=== PATIENT | female | born 1995 | race Hispanic/Latino ===

== ENCOUNTER 2018-12-05 08:13 | Emergency (ER) | payer OTHER ==
[2018-12-05 08:23] VITALS: RESP 18; TEMP 98.5; O2SAT 99
[2018-12-05] MEDS ORDERED: Sodium Chloride 0.9% 1,000 ML IV STA (08:46)
[2018-12-05] MEDS ORDERED: Iohexol 240 (50 ml) PO STA (08:46)
[2018-12-05 09:05] LABS: BASO # 0.1 K/uL (0.0-0.2); BASO % 0.9 % (0.0-2.0); EOS # 0.1 K/uL (0.0-0.7); HEMOGLOBIN 13.4 g/dL (11.0-16.0); LYMPH # 1.3 K/uL (1.0-4.3); LYMPH % 15.7 % (20.0-40.0); MEAN CELL VOLUME 90.6 fL (81.0-99.0); MEAN CORPUSCULAR HEMOGLOBIN 31.4 pg (27.0-31.0); MEAN CORPUSCULAR HGB CONC 34.6 g/dL (33.0-37.0); MEAN PLATELET VOLUME 8.5 fL (7.2-11.7); MONO # 0.9 K/uL (0.0-0.8); MONO % 11.1 % (0.0-10.0); NEUT # 5.7 K/uL (1.8-7.0); NEUT % 71.3 % (50.0-75.0); RBC 4.27 Mil/uL (3.80-5.20)
[2018-12-05 09:18] LABS: ALB/GLOB RATIO 1.9 (1.0-2.1); ALBUMIN 4.4 g/dL (3.5-5.0); ALT/SGPT 8 U/L (9-52); AST/SGOT 22 U/L (14-36); BLOOD UREA NITROGEN 12 mg/dL (7-17); CALCIUM 8.9 mg/dl (8.6-10.4); GFR NON-AFRICAN AMERICAN > 60; LIPASE 42 U/L (23-300)
[2018-12-05] MEDS ORDERED: Iohexol 240 (50 ml) ONE (09:18)
[2018-12-05] MEDS ORDERED: Morphine 4 MG/ML VIAL ONE (09:19)
[2018-12-05] MEDS ORDERED: Sodium Chloride 0.9% 1,000 ML ONE (09:19)
[2018-12-05 09:24] LABS: SQUAMOUS EPITHIAL 4 /hpf (0-5); URINE BACTERIA RARE (<OCC); URINE BILIRUBIN NEGATIVE (NEGATIVE); URINE BLOOD NEGATIVE (NEGATIVE); URINE CLARITY Clear (Clear); URINE COLOR Yellow (YELLOW); URINE GLUCOSE (UA) NORMAL (Normal); URINE LEUKOCYTE ESTERASE NEG Leu/uL (Negative); URINE PROTEIN NEGATIVE (NEGATIVE); URINE UROBILINOGEN NORMAL mg/dL (0.2-1.0)
[2018-12-05 09:28] LABS: HCG,QUALITATIVE URINE NEGATIVE (NEGATIVE)
[2018-12-05] MEDS ORDERED: Iohexol 300 100 ML IJ ONE (10:34)
--- NOTE | 2018-12-05 11:30 | CT ---
Date of service: 12/05/2018 PROCEDURE: CT Abdomen and Pelvis with contrast HISTORY: LLQ abd pain radiating to epigastric area COMPARISON: None. TECHNIQUE: Following oral and intravenous contrast administration, a CT examination of the abdomen and pelvis was performed from the domes of the diaphragms to the symphysis pubis with reformatted datasets provided not only axial but also sagittal and coronal series. Contrast dose: Omnipaque 300, 100 cc Radiation dose: Total exam DLP = 246.69 mGy-cm. This CT exam was performed using one or more of the following dose reduction techniques: Automated exposure control, adjustment of the mA and/or kV according to patient size, and/or use of iterative reconstruction technique. FINDINGS: LOWER THORAX: Unremarkable. LIVER: Unremarkable. No gross lesion or ductal dilatation. GALLBLADDER AND BILE DUCTS: Unremarkable. PANCREAS: Unremarkable. No gross lesion or ductal dilatation. SPLEEN: Unremarkable. ADRENALS: Unremarkable. No mass. KIDNEYS AND URETERS: Unremarkable. No hydronephrosis. No solid mass. VASCULATURE: Unremarkable. No aortic aneurysm. No aortic atherosclerotic calcification or mural plaque present. BOWEL: No bowel obstruction is appreciated and there is no pericolic or perienteric reaction or gross mural thickening evident. Borderline left colonic mural thickening is question but not definite and may indicate an limited amount of segmental colitis. Clinically correlate further. No colonic diverticular disease appreciable. No focal mural thickening appreciable. APPENDIX: Normal appendix. PERITONEUM: Unremarkable. Trace pelvic fluid identified. No free air. LYMPH NODES: Unremarkable. No enlarged lymph nodes. BLADDER: Unremarkable. REPRODUCTIVE: Unremarkable. BONES: No acute fracture. OTHER FINDINGS: None. IMPRESSION: Borderline left colonic segmental colitis though this is not definite. Trace pelvic fluid is identified. No abscess or free air. The remainder the examination appears unremarkable.
--- NOTE | 2018-12-05 11:49 | C.PDOC ---
History Of Present Illness 23 year old female presents to the ED complaining of abdominal pain associated with nausea since waking up this morning. Reports she developed several abdominal pain in her lower abdomen that goes up to her epigastric area. Denies any fever, chills, vomiting, diarrhea, dysuria, hematuria, chest pain, back pain, or any other complaints. Chief Complaint (Nursing): Abdominal Pain History Per: Patient History/Exam Limitations: no limitations Onset/Duration Of Symptoms: Hrs Current Symptoms Are (Timing): Still Present Location Of Pain/Discomfort: Epigastric, Suprapubic Radiation Of Pain To:: None Quality Of Discomfort: "Pain" Associated Symptoms: Nausea. denies: Fever, Chills, Vomiting, Diarrhea, Back Pain, Chest Pain, Urinary Symptoms Past Medical History Reviewed: Historical Data, Nursing Documentation, Vital Signs Vital Signs: Last Vital Signs Temp 98.5 F 12/05/18 08:23 Pulse 94 H 12/05/18 08:23 Resp 18 12/05/18 08:23 BP 121/86 12/05/18 08:23 Pulse Ox 99 12/05/18 08:23 - Medical History PMH: No Chronic Diseases Surgical History: No Surg Hx Family History: States: No Known Family Hx - Social History Hx Alcohol Use: Yes Hx Substance Use: Yes - Immunization History Hx Tetanus Toxoid Vaccination: Yes Hx Influenza Vaccination: No Hx Pneumococcal Vaccination: No Review Of Systems Except As Marked, All Systems Reviewed And Found Negative. Constitutional: Negative for: Fever, Chills Cardiovascular: Negative for: Chest Pain Gastrointestinal: Positive for: Nausea, Abdominal Pain. Negative for: Vomiting, Diarrhea Genitourinary: Negative for: Dysuria, Hematuria Musculoskeletal: Negative for: Back Pain Physical Exam - Physical Exam Appears: Non-toxic, No Acute Distress Skin: Warm, Dry, No Rash Head: Normacephalic Eye(s): bilateral: Normal Inspection Nose: Normal Oral Mucosa: Moist Neck: Supple Chest: Symmetrical Cardiovascular: Rhythm Regular Respiratory: Normal Breath Sounds, No Rales, No Rhonchi, No Wheezing Gastrointestinal/Abdominal: Soft, Tenderness (left abdomen and epigastric area ), No Distention, No Guarding, No Rebound Back: No CVA Tenderness Extremity: Bilateral: Atraumatic, Normal Color And Temperature, Normal ROM Neurological/Psych: Oriented x3, Normal Speech Gait: Steady ED Course And Treatment - Laboratory Results Result Diagrams: 12/05/18 09:00 12/05/18 09:00 Lab Results: Total Bilirubin 0.4 mg/dL (0.2-1.3) 12/05/18 09:00 AST 22 U/L (14-36) 12/05/18 09:00 ALT 8 U/L (9-52) L 12/05/18 09:00 Alkaline Phosphatase 81 U/L (38-126) 12/05/18 09:00 Total Protein 6.7 g/dL (6.3-8.3) 12/05/18 09:00 Albumin 4.4 g/dL (3.5-5.0) 12/05/18 09:00 Globulin 2.3 gm/dL (2.2-3.9) 12/05/18 09:00 Albumin/Globulin Ratio 1.9 (1.0-2.1) 12/05/18 09:00 Lipase 42 U/L (23-300) 12/05/18 09:00 Urine Color Yellow (YELLOW) 12/05/18 09:00 Urine Clarity Clear (Clear) 12/05/18 09:00 Urine pH 5.0 (5.0-8.0) 12/05/18 09:00 Ur Specific [place] 1.028 (1.003-1.030) 12/05/18 09:00 Urine Protein Negative mg/dL (NEGATIVE) 12/05/18 09:00 Urine Glucose (UA) Normal mg/dL (Normal) 12/05/18 09:00 Urine Ketones Negative mg/dL (NEGATIVE) 12/05/18 09:00 Urine Blood Negative (NEGATIVE) 12/05/18 09:00 Urine Nitrate Negative (NEGATIVE) 12/05/18 09:00 Urine Bilirubin Negative (NEGATIVE) 12/05/18 09:00 Urine Urobilinogen Normal mg/dL (0.2-1.0) 12/05/18 09:00 Ur Leukocyte Esterase Neg Geremias/uL (Negative) 12/05/18 09:00 Urine WBC (Auto) 1 /hpf (0-5) 12/05/18 09:00 Urine RBC (Auto) 2 /hpf (0-3) 12/05/18 09:00 Ur Squamous Epith Cells 4 /hpf (0-5) 12/05/18 09:00 Urine Bacteria Rare (<OCC) 12/05/18 09:00 Urine HCG, Qual Negative (NEGATIVE) 12/05/18 09:00 Urine HCG, Qual Negative (NEGATIVE) 12/05/18 09:00 O2 Sat by Pulse Oximetry: 99 (RA) Pulse Ox Interpretation: Normal - CT Scan/US ABD/PEL Other Rad Studies (CT/US): Read By Radiologist, Radiology Report Reviewed CT/US Interpretation: Accession No. : [id number]. Patient Name / ID : NICOLETTE PARADA / [id number]. Exam Date : 12/05/2018 10:54:21 ( Approved ). Study Comment : Sex / Age : F / 23Y. Creator : Sada Diggs. Dictator : Kodi Kessler MD. Unit Control Worker : Range Mechanic : Kodi Kessler MD. Approver2 : Report Date : 12/05/2018 11:04:31. My Comment : . Date of service: 12/05/2018. PROCEDURE: CT Abdomen and Pelvis with contrast. HISTORY: LLQ abd pain radiating to epigastric area. COMPARISON: None. TECHNIQUE: Following oral and intravenous contrast administration, a CT examination of the abdomen and pelvis was performed from the domes of the diaphragms to the symphysis pubis with reformatted datasets provided not only axial but also sagittal and coronal series. Contrast dose: Omnipaque 300, 100 cc. Radiation dose: Total exam DLP = 246.69 mGy-cm. This CT exam was performed using one or more of the following dose reduction techniques: Automated exposure control, adjustment of the mA and/or kV according to patient size, and/or use of iterative reconstruction technique. FINDINGS: LOWER THORAX: Unremarkable. LIVER: Unremarkable. No gross lesion or ductal dilatation. GALLBLADDER AND BILE DUCTS: Unremarkable. PANCREAS: Unremarkable. No gross lesion or ductal dilatation. SPLEEN: Unremarkable. ADRENALS: Unremarkable. No mass. KIDNEYS AND URETERS: Unremarkable. No hydronephrosis. No solid mass. VASCULATURE: Unremarkable. No aortic aneurysm. No aortic atherosclerotic calcification or mural plaque present. BOWEL: No bowel obstruction is appreciated and there is no pericolic or perienteric reaction or gross mural thickening evident. Borderline left colonic mural thickening is question but not definite and may indicate an limited amount of segmental colitis. Clinically correlate further. No colonic diverticular disease appreciable. No focal mural thickening appreciable. APPENDIX: Normal appendix. PERITONEUM: Unremarkable. Trace pelvic fluid identified. No free air. LYMPH NODES: Unremarkable. No enlarged lymph nodes. BLADDER: Unremarkable. REPRODUCTIVE: Unremarkable. BONES: No acute fracture. OTHER FINDINGS: None. IMPRESSION: Borderline left colonic segmental colitis though this is not definite. Trace pelvic fluid is identified. No abscess or free air. The remainder the examination appears unremarkable. Progress Note: Patient treated with Morphine 4mg IVP, Protonix 40mg IVP, and Zofran 4mg IVP. Blood and urine collected and sent to the lab for analysis. CT abd/pel ordered. On reeval, patient reports improvement of symptoms. Patient given follow up instructions. Instructed to return to ER if symptoms worsen or new symptoms arise. Disposition - Disposition Disposition: HOME/ ROUTINE Disposition Time: 13:52 Condition: IMPROVED Additional Instructions: Follow up with PMD within 1-2 days. Return to ED if feel worse. Prescriptions: Ibuprofen [Motrin Tab] 400 mg PO Q8 #30 tab Instructions: Acute Abdomen (Belly Pain) Forms: [facility] ([place]) - Clinical Impression Clinical Impression: Abdominal pain - PA / [employer] / Resident Statement MD/DO has reviewed & agrees with the documentation as recorded. - Scribe Statement The provider has reviewed the documentation as recorded by the Berylibzohreh Mcknight All medical record entries made by the Greg were at my direction and personally dictated by me. I have reviewed the chart and agree that the record accurately reflects my personal performance of the history, physical exam, medical decision making, and the department course for this patient. I have also personally directed, reviewed, and agree with the discharge instructions and disposition.
[2018-12-05 13:24] VITALS: BP 119/75; PULSE 72
== END 2018-12-05 14:12 | disposition home or self-care (01) ==
LOC: C.ER 08:13
DX: R10.13 Epigastric pain (principal)
CPT/HCPCS: 74177; 80053; 81001; 83690; 84703; 85025; 87804; 96361; 96374; 96375; 99284; C9113; J2270; J2405; J7030; Q9966; Q9967